=== PATIENT | male | born 1955 | race Caucasian/White ===

== ENCOUNTER 2017-03-01 10:00 | Outpatient (CLI) | payer BC ==
--- NOTE | 2017-03-01 11:57 | RAD ---
MANDIBLE FOUR VIEWS: Date: 03-01-17 FINDINGS: No fracture or area of gross bony destruction was indicated. A lucency seen posterior to the last ma ndibular molar on the left on the frontal view appears to be due to just the depression where there was a prior molar in this location. On the lateral view it is difficult to make out a literal absces s here. Otherwise, the mandible was unremarkable. IMPRESSION: Some lucency immediately behind the remaining mandibular molar on the left which is probably just th e residual socket from the tooth that used to be there. Nevertheless, if pain is impressive, either a CT could be done or better yet a Panorex series to better assess the dental condition. POS: HOME
== END 2017-03-01 10:01 | disposition home or self-care (01) ==
LOC: BURRAD 10:00
PROVIDERS: ATTEND Family Medicine
DX: R68.84 Jaw pain (principal)
CPT/HCPCS: 70110

== ENCOUNTER 2018-02-13 15:43 | Outpatient (CLI) | payer BC ==
--- NOTE | 2018-02-13 17:01 | RAD ---
LEFT KNEE THREE VIEWS: 02/13/18 No fracture was appreciated but there is probably a small amount of joint fluid. There is some bony s purring in the patellofemoral joint as well as the medial compartment of the knee. Slight medial join t space narrowing is present. No acute abnormalities of the articular surfaces were noted. IMPRESSION: 1. Small joint effusion. 2. Minor arthritic changes. Note: If symptoms continue, an MRI if feasible could potentially show any internal derangements. POS: HOME
== END 2018-02-13 15:44 | disposition home or self-care (01) ==
LOC: BURRAD 15:43
PROVIDERS: ATTEND Family Medicine
DX: M25.562 Pain in left knee (principal); M25.462 Effusion, left knee; M17.12 Unilateral primary osteoarthritis, left knee